=== PATIENT | male | born 1955 | race Caucasian/White ===

== ENCOUNTER 2021-03-12 15:01 | Emergency (ER) | payer BC ==
[~2021-03-12] VITALS: Ht 180.3 cm; Wt 100.0 kg
[2021-03-12 15:01] VITALS: BP 168/96
[2021-03-12] MEDS ORDERED: GI COCKTAIL 50ML BTL(HYOSCYAMINE/MAALOX/LIDOCAINE VISCOUS)(1:3:1) PO ONE (18:40)
--- NOTE | 2021-03-12 19:20 | REP ---
INDICATION: LATERAL PLS, POSS FB SWALLOWED, PAIN IN THROAT. COMPARISON: None. FINDINGS: AP and lateral views of the neck soft tissues show the pharyngeal, hypopharyngeal and tracheal airways to be within normal limits. The anterior spinal soft tissues are within normal limits. IMPRESSION: Negative exam. <Electronically signed by Michelet Sahu > 03/12/21 [id number]
--- NOTE | 2021-03-12 19:21 | REP ---
INDICATION: LATERAL PLS, POSS FB SWALLOWED, PAIN IN THROAT. COMPARISON: None. TECHNIQUE: Supine nose to rectum AP FINDINGS: There are no radiopaque foreign bodies. The intestinal gas pattern is nonspecific IMPRESSION: No abnormalities noted <Electronically signed by Michelet Sahu > 03/12/211916
== END 2021-03-12 20:16 | disposition home or self-care (01) ==
LOC: M ED 15:01
DX: J02.9 Acute pharyngitis, unspecified (principal)